=== PATIENT | male | born 1960 | race Caucasian/White ===

== ENCOUNTER 2017-02-16 08:58 | Inpatient (IN) ==
[2017-02-09 14:41] LABS: Basophils # (Auto) 0 K/mcL (0.0-0.3); Basophils % (Auto) 0.7 % (0.0-2.0); Eosinophils # (Auto) 0.1 K/mcL (0.0-0.7); Eosinophils % (Auto) 2.5 % (0.0-7.0); Granulocytes % (Auto) 63.7 % (38.0-78.0); Lymphocytes # (Auto) 1.4 K/mcL (1.5-4.8); Mean Cell Volume 84.9 fL (80.0-100.0); Mean Corpuscular HGB Conc 33.4 g/dL (31.0-36.0); Mean Corpuscular Hemoglobin 28.4 pg (26.0-34.0); Monocytes # (Auto) 0.5 K/mcL (0.1-0.9); Monocytes % (Auto) 9.1 % (1.0-9.0); Platelet Count 234 K/mcL (140-440); RBC 4.62 M/mcL (4.50-5.90); Red Cell Distribution Width 13.2 % (11.5-14.5)
[2017-02-09 14:59] LABS: Appearance,Urine CLEAR; Bilirubin,Urine NEG (NEG); Color,Urine STRAW; Glucose,Urine (UA) NEGATIVE (NEG); Leukocyte Esterase,Urine NEG /uL (NEG); Nitrate,Urine NEG (NEG); Protein,Urine NEG (NEG); Urine Blood NEG mg/dL (<0.03); Urobilinogen,Urine NEG (NEG)
[2017-02-09 15:13] LABS: Blood Urea Nitrogen 21 mg/dl (6-20)
[~2017-02-16 08:58] MED LIST: CELECOXIB 200 MG CAPSULE PO SCH; ceFAZolin 1 GM VIAL IV SCH; oxyCODONE 10 MG TAB.ER.12H PO SCH
[2017-02-16] MEDS: PREGABALIN 150 MG CAPSULE PO SCH (09:37)
[2017-02-16] MEDS ORDERED: GLYCOPYRROLATE 0.2 MG/ML VIAL IV ONE (13:45)
[2017-02-16] MEDS ORDERED: ONDANSETRON 4 MG/2 ML VIAL IV ONE (13:45)
[2017-02-16] MEDS ORDERED: LIDOCAINE HCL/PF 100 MG/5 ML SYRINGE IV ONE (13:45)
[2017-02-16] MEDS ORDERED: PROPOFOL 200 MG/20 ML VIAL IV ONE (13:45)
[2017-02-16] MEDS ORDERED: MIDAZOLAM 5 MG/5 ML VIAL IV ONE (13:45)
[2017-02-16] MEDS ORDERED: ePHEDrine 50 MG/ML AMPUL IV ONE (13:45)
[2017-02-16] MEDS ORDERED: DEXAMETHASONE 10 MG/ML VIAL IV ONE (13:45)
[2017-02-16] MEDS ORDERED: PROMETHAZINE 25 MG/ML VIAL IV PRN ×2 (14:50→15:29)
[2017-02-16] MEDS ORDERED: MEPERIDINE 25 MG/ML SYRINGE IV PRN (14:50)
[2017-02-16] MEDS ORDERED: diphenhydrAMINE 50 MG/ML VIAL IV PRN (14:50)
[2017-02-16] MEDS ORDERED: FLUMAZENIL 0.1 MG/ML ML IV PRN (14:50)
[2017-02-16] MEDS ORDERED: IPRATROPIUM/ALBUTEROL 3 ML AMPUL.NEB NEB PRN (14:50)
[2017-02-16] MEDS ORDERED: NALOXONE HCL 0.4 MG/ML VIAL IV PRN (14:50)
[2017-02-16] MEDS ORDERED: LACTATED RINGERS 250 ML IV PRN (14:50)
[2017-02-16] MEDS ORDERED: METHOCARBAMOL 1,000 MG/10 ML VIAL IV PRN (14:50)
[2017-02-16] MEDS ORDERED: fentaNYL 100 MCG/2 ML VIAL IV PRN (14:50)
[2017-02-16] MEDS ORDERED: HYDROmorphone 2 MG/ML SYRINGE IV PRN ×2 (14:50→15:29)
[2017-02-16] MEDS ORDERED: ONDANSETRON 4 MG/2 ML VIAL IV PRN ×2 (14:50→15:29)
[2017-02-16] MEDS ORDERED: BENZOCAINE/MENTHOL 1 LOZENGE PO PRN ×2 (14:50→15:29)
[2017-02-16] MEDS ORDERED: LACTATED RINGERS 1,000 ML IV SCH (15:00)
[2017-02-16] MEDS ORDERED: TRANEXAMIC ACID 1,000 MG/10 ML VIAL IV SCH (15:29)
[2017-02-16] MEDS ORDERED: METHOCARBAMOL 750 MG TABLET PO PRN (15:29)
[2017-02-16] MEDS ORDERED: ONDANSETRON ODT 4 MG TABLET SL PRN (15:29)
[2017-02-16] MEDS ORDERED: KETOROLAC 30 MG/ML VIAL IV PRN (15:29)
[2017-02-16] MEDS ORDERED: BISACODYL 10 MG SUPP.RECT PR PRN (15:29)
[2017-02-16] MEDS ORDERED: POLYETHYLENE GLYCOL 3350 17 GM PACKET PO PRN (15:29)
[2017-02-16] MEDS ORDERED: FLEETS ADULT ENEMA PR PRN (15:29)
[2017-02-16] MEDS ORDERED: MAGNESIUM HYDROXIDE 30 ML ORAL.SUSP PO PRN (15:29)
--- NOTE | 2017-02-16 15:29 | Brief Operative Note ---
Date of procedure: 02/16/17 Pre-op diagnosis: left hip oa Post-op diagnosis: same Procedure: left total hip arthroplasty Grafts/Implants: Yes Anesthesia: spinal Complications: none Surgeon: Orlin Winkler Branch Operations Specialist: Matt Cobian Estimated blood loss (cc): 150 Specimens Removed/Pathology: none sent Condition: stable Disposition: PACU
--- NOTE | 2017-02-16 16:18 | XRay Report ---
CLINICAL INFORMATION: Postsurgical follow-up TECHNIQUE: Portable AP pelvis and lateral left hip COMPARISON: None. FINDINGS: Status post left total hip arthroplasty. Acetabular and femoral head complements are in anatomic positions. Moderate to severe degenerative disc disease in the right hip. IMPRESSION: Status post left total hip arthroplasty Interpreted and Authenticated by: Orlin Combs 02/16/17
--- NOTE | 2017-02-16 16:42 | Operative Note ---
DATE OF OPERATION: 02/16/2017 PREOPERATIVE DIAGNOSIS: Degenerative joint disease, left hip. POSTOPERATIVE DIAGNOSIS: Degenerative joint disease, left hip. PROCEDURE: Left total hip arthroplasty. SURGEON: Annie Winkler M.D. CREATIVE DEVELOPER SURGEON: Matt Cobian PA-C. ANESTHESIA: Spinal with LMA assist. ESTIMATED BLOOD LOSS: 150 mL. COMPLICATIONS: None noted. SPECIMENS REMOVED: None. DRAINS: None. IMPLANTS: DePuy [place] Hole Eliminator PS; DePuy [place] Gription acetabular shell 54 mm OD; [place] Altrx polyethylene acetabular liner, neutral 36 x 54; DePuy Tri-Lock BPS femoral stem with Gription size 3 standard; DePuy Biolox delta ceramic femoral head +8.5, 36 mm diameter. INDICATIONS: The patient has had a long-standing history of worsening pain in the hip that has failed conservative treatment. Radiographs have confirmed advanced degenerative joint disease. After a long discussion about treatment options, the patient elected to proceed with a hip arthroplasty. The risks and benefits were discussed with the patient in detail including, but not limited to, the risks of anesthesia, problems with the heart or lungs related to anesthesia, infection, compromise or injury to the nerves and blood vessels, deep venous thrombosis, pulmonary embolism, pneumonia, continued pain after surgery, worsening pain or symptoms after surgery, swelling, loss of motion, instability, leg length discrepancy, and need for repeat surgery. DESCRIPTION OF PROCEDURE: The patient was seen in pre-anesthesia waiting room where all questions were answered and the correct side and site were identified and marked. The patient was then brought to the operating room and administered the anesthetic and given preoperative antibiotics. A time-out was then called. The patient was placed in the lateral decubitus position with all prominences well padded using the [place] frame and the extremity was prepped and draped in the usual sterile fashion. Anesthesia; gave the patient 1 gm of tranexamic acid via an intravenous route. A standard posterior approach was made. We dissected through the skin and subcutaneous tissue to the deep fascia. The deep fascia was split in line with the incision and a Charnley retractor was placed. We exposed, tagged, and incised the short external rotators and piriformis tendon and retracted them posteriorly to help protect the sciatic nerve which was palpated throughout the case. We then performed a T-capsulotomy and tagged the capsule edges. Prior to dislocating the hip, we set a length and offset gauge from a Steinmann pin in the iliac wing to a corina on the greater trochanter. The hip was then dislocated and a femoral neck osteotomy was performed to the presurgical templated level off the lesser trochanter. The head was removed and sized. We next turned our attention to the acetabulum. Retractors were placed for optimal visualization. A complete labral excision was performed. The capsule was preserved for later closure. We began reaming using anatomic landmarks with the DePuy [place] acetabular system. We medialized the cup and reamed up to provide good fill and approximately 20 degrees of anteversion and 45 degrees of abduction, we impacted the DePuy [place] cup and placed a cancellous screw in the posterior-superior quadrant. Osteophytes were removed from around the shell. We placed the trial liner and turned our attention to the femur. We placed retractors for visualization, internally rotated the femur, and established intramedullary access. The femoral axis was lateralized with the box osteotome and then reamed up in a standard fashion. We broached using the DePuy [place] stem to a stable platform medial, lateral, and rotationally with the appropriate version. We then performed a calcar reaming off the broach. Trials were then placed and optimized for leg length and stability. We used the leg length and offset guide to confirm our trials. Best stability, length, and offset characteristics were obtained with these sizes. We removed all trials and impacted the polyethylene acetabular liner in a standard fashion after a thorough irrigation. We then impacted the femoral stem to its broached location using a fourth-generation cementing technique and placed the head. Final reduction was performed. Again, good stability, leg length, and offset characteristics were noted. We irrigated with three liters of antibiotic saline. We closed the capsule with #2 FiberWire. We placed a deep drain and closed the fascia with a combination of looped #0 Maxon and #0 Vicryl. We closed the subcutaneous tissue and skin in layers out to amberly in the skin. A sterile pressure dressing and abduction wedge were applied. All needle and sponge counts were correct. The patient was transferred to the recovery room in stable condition. ALEX:[email or web address] Job ID: [id number] Doc ID: [id number] Annie Winkler MD
[2017-02-16] MEDS: LACTATED RINGERS 1,000 ML IV SCH ×2 (17:39→23:00)
[2017-02-16] MEDS ORDERED: amLODIPine 10 MG TABLET PO SCH (18:00)
[2017-02-16] MEDS: HYDROcodone/APAP 10/325MG TABLET PO PRN (19:21)
[2017-02-16] MEDS ORDERED: SENNOSIDES 1 TABLET PO SCH (21:00)
[2017-02-16] MEDS: DOCUSATE SODIUM 100 MG CAPSULE PO SCH (21:42)
[2017-02-16] MEDS: WARFARIN 5 MG TABLET PO SCH (21:53)
[2017-02-16] MEDS: ceFAZolin 1 GM VIAL IV SCH (21:53)
[2017-02-16] MEDS: 0.9 % SODIUM CHLORIDE 10 ML SYRINGE IV SCH (22:01)
[2017-02-17] MEDS: ceFAZolin 1 GM VIAL IV SCH (04:49)
[2017-02-17] MEDS: 0.9 % SODIUM CHLORIDE 10 ML SYRINGE IV SCH ×2 (05:10→13:58)
[2017-02-17] MEDS: HYDROcodone/APAP 10/325MG TABLET PO PRN ×2 (06:54→13:56)
--- NOTE | 2017-02-17 07:34 | Discharge Summary ---
Providers - Providers Patient information: Note initiated : 02/17/17 at 7:32 am Service Date, if different from initiated Date: [] Patient: Aaron Hayes 57 y/o M admitted on 02/16/17 for Left Total Hip Arthroplasty. Chief Complaint: [] Date of admission: 02/16/17 Discharge date: 02/17/17 Attending physician: Orlin Winkler Hospitalization Hospital course: Patient had longstanding history of worsening hip pain that failed conservative treatment. Radiographs showed advanced degenerative joint disease. He elected to proceed with surgery. On 02/16/17 he was taken to the OR where a Total Hip Arthroplasty was performed. He tolerated the procedure well and was taken to PACU in stable condition. He had no pain after surgery and was walking greater than 200 feet that night. He was ready for discharge the next day. He denied calf pain, chest pain, SOB. Vital signs were stable. Labs were WNL. Discharge diagnosis: Left Total Hip Arthroplasty Reason for admission: Left degenerative joint disease Exam - Exam Incision healing: Yes Incision draining: No Incision red: No Incision swollen: No Incision inflamed: No Clean and dry: Yes Weight bearing status: as tolerated Ortho Discharge - NGHIA - Patient Instructions Diet: Regular Diet Activity: activity as tolerated Total Hip Protocol: Follow activity instructions as provided by Physical Therapy. Dressing Care: May shower in 2 days - Follow Up Plan Follow Up Appointments: Orlin Winkler MD [Physician] - 03/03/17 10:00 am Disposition: Home, Self-Care Prognosis: Good Rehab Potential: Good I certify that the patient requires SNF services: No Overall status at discharge: patient is progressing back to baseline - Orders For Discharge Prescriptions: Docusate Sodium [Colace] 100 mg PO BID #30 capsule HYDROcodone/APAP 10/325MG [[place] 10/325Mg] 1 - 2 tab PO Q4HP PRN #60 tablet PRN Reason: Pain Warfarin [Coumadin] 5 mg PO DAILY@1400 #30 tablet Pending Studies Resuscitation Status Full Code Diet Regular Diet Start WedFeb 16 Dinner Acetaminophen/Hydrocodone Bitart ([place] 10/325mg) 0 tab PO Q4HP PRN PRN Reason: Pain Last Admin: 02/17/17 06:54 Dose: 1 tab Admin: 02/16/17 19:21 Dose: 1 tab Amlodipine Besylate (Norvasc) 10 mg PO QDAY@1800 [facility] Last Admin: 02/16/17 17:42 Dose: Not Given Docusate Sodium (Colace) 100 mg PO BID [facility] Last Admin: 02/16/17 21:42 Dose: 100 mg Lactated Ringer's (Lactated Ringers) 1,000 mls @ 125 mls/hr IV .Q8H [facility] Last Admin: 02/16/17 23:00 Dose: 125 mls/hr Admin: 02/16/17 17:39 Dose: Not Given Senna (Senokot) 2 tab PO HS [facility] Last Admin: 02/16/17 21:42 Dose: 2 tab Sodium Chloride (Saline Flush) 10 ml IV Q8 [facility] Last Admin: 02/17/17 05:10 Dose: 10 ml Admin: 02/16/17 22:01 Dose: Not Given Warfarin Sodium (Coumadin) 5 mg PO DAILY@1400 [facility] Last Admin: 02/16/17 21:53 Dose: 5 mg Shift Summary 02/17/17 03:03 Shift Summary by Wally Copeland Pt a&o x4, VSS on RA. Pt up with SBA using FWW. Walked to nurses station. Minimal c/o pain and received 1 [place] x1 thus far. CMS intact. Dressing had to be reinforced last night due to excessive drainage. Ice pack placed when in bed. Pt was BS for >600 and was able to urinate 500ml. Pt since then urinating 250mls on average q2-[address] Foot pumps in place. Iv to left hand. Plans for DC pending. Will update further at bedside. Initialized on 02/17/17 03:03 - END OF NOTE
[2017-02-17] MEDS: DOCUSATE SODIUM 100 MG CAPSULE PO SCH (08:36)
[2017-02-17] MEDS ORDERED: LISINOPRIL 20 MG TABLET PO SCH (09:00)
[2017-02-17] MEDS ORDERED: FLU VACC QS2016-17 36MOS UP/PF 60 MCG/0.5 ML SYRINGE IM ONE (09:00)
[2017-02-17] MEDS ORDERED: HYDROCHLOROTHIAZIDE 25 MG TABLET PO SCH (09:00)
[2017-02-17] MEDS: LACTATED RINGERS 1,000 ML IV SCH (09:54)
[2017-02-17] MEDS: WARFARIN 5 MG TABLET PO SCH (13:58)
== END 2017-02-17 18:40 | disposition home or self-care (01) | DRG 470 ==
LOC: MEDSUR 08:58
PROVIDERS: ADMIT Orthopaedic Surgery Sports Medicine; ATTEND Orthopaedic Surgery Sports Medicine

== ENCOUNTER 2017-08-17 04:53 | Inpatient (IN) ==
[2017-08-11 17:39] LABS: Appearance,Urine CLEAR; Bilirubin,Urine NEG (NEG); Color,Urine STRAW; Glucose,Urine (UA) NEGATIVE (NEG); Leukocyte Esterase,Urine NEG /uL (NEG); Nitrate,Urine NEG (NEG); Protein,Urine NEG (NEG); Specific Gravity,Urine 1.006 (1.000-1.035); Urine Blood NEG mg/dL (<0.03); Urobilinogen,Urine NEG (NEG)
[2017-08-11 17:58] LABS: Basophils # (Auto) 0.1 K/mcL (0.0-0.3); Basophils % (Auto) 1.1 % (0.0-2.0); Eosinophils # (Auto) 0.2 K/mcL (0.0-0.7); Eosinophils % (Auto) 3.2 % (0.0-7.0); Granulocytes % (Auto) 55.9 % (38.0-78.0); Lymphocytes # (Auto) 1.6 K/mcL (1.5-4.8); Lymphocytes % (Auto) 29.1 % (15.5-49.0); Mean Cell Volume 83.9 fL (80.0-100.0); Mean Corpuscular HGB Conc 34.4 g/dL (31.0-36.0); Mean Corpuscular Hemoglobin 28.8 pg (26.0-34.0); Monocytes # (Auto) 0.6 K/mcL (0.1-0.9); Monocytes % (Auto) 10.7 % (1.0-12.0); Platelet Count 238 K/mcL (140-440); RBC 4.84 M/mcL (4.50-5.90)
[2017-08-11 18:05] LABS: Blood Urea Nitrogen 23 mg/dl (6-20)
[2017-08-17] MEDS ORDERED: oxyCODONE 10 MG TAB.ER.12H PO SCH (05:00)
[2017-08-17] MEDS ORDERED: ceFAZolin 1 GM VIAL IV SCH (05:00)
[2017-08-17] MEDS ORDERED: PREGABALIN 75 MG CAPSULE PO SCH (05:00)
[2017-08-17] MEDS ORDERED: CELECOXIB 200 MG CAPSULE PO SCH (05:00)
[2017-08-17] MEDS ORDERED: ONDANSETRON 4 MG/2 ML VIAL IV ONE (07:30)
[2017-08-17] MEDS ORDERED: MIDAZOLAM 5 MG/5 ML VIAL IV ONE (07:30)
[2017-08-17] MEDS ORDERED: TRANEXAMIC ACID 1,000 MG/10 ML VIAL IV ONE ×2 (07:30→09:07)
[2017-08-17] MEDS ORDERED: LIDOCAINE HCL/PF 100 MG/5 ML SYRINGE IV ONE (07:30)
[2017-08-17] MEDS ORDERED: PROPOFOL 200 MG/20 ML VIAL IV ONE (07:30)
[2017-08-17] MEDS ORDERED: PHENYLEPHRINE 10 MG/ML VIAL IV ONE (07:30)
[2017-08-17] MEDS ORDERED: KETAMINE 100 MG/ML ML IV ONE (07:30)
[2017-08-17] MEDS ORDERED: GLYCOPYRROLATE 0.2 MG/ML VIAL IV ONE (07:30)
[2017-08-17] MEDS ORDERED: ePHEDrine 50 MG/ML AMPUL IV ONE (07:30)
[2017-08-17] MEDS ORDERED: GENTAMICIN SULFATE 800 MG/20 ML VIAL IR ONE (08:31)
[2017-08-17] MEDS ORDERED: ONDANSETRON 4 MG/2 ML VIAL IV PRN ×2 (08:49→09:07)
[2017-08-17] MEDS ORDERED: METOPROLOL TARTRATE 5 MG/5 ML VIAL IV PRN (08:49)
[2017-08-17] MEDS ORDERED: METHOCARBAMOL 1,000 MG/10 ML VIAL IV PRN (08:49)
[2017-08-17] MEDS ORDERED: MEPERIDINE 25 MG/ML SYRINGE IV PRN (08:49)
[2017-08-17] MEDS ORDERED: ePHEDrine 50 MG/ML AMPUL IV PRN (08:49)
[2017-08-17] MEDS ORDERED: fentaNYL 100 MCG/2 ML VIAL IV PRN (08:49)
[2017-08-17] MEDS ORDERED: HYDROmorphone 2 MG/ML SYRINGE IV PRN (08:49)
[2017-08-17] MEDS ORDERED: BENZOCAINE/MENTHOL 1 LOZENGE PO PRN ×2 (08:49→09:07)
[2017-08-17] MEDS ORDERED: IPRATROPIUM/ALBUTEROL 3 ML AMPUL.NEB NEB PRN (08:49)
[2017-08-17] MEDS ORDERED: ACETAMINOPHEN 1,000 MG/100 ML BOTTLE IV SCH (09:00)
[2017-08-17] MEDS ORDERED: LACTATED RINGERS 1,000 ML IV SCH (09:00)
[2017-08-17] MEDS ORDERED: FLEETS ADULT ENEMA PR PRN (09:07)
[2017-08-17] MEDS ORDERED: BISACODYL 10 MG SUPP.RECT PR PRN (09:07)
[2017-08-17] MEDS ORDERED: MAGNESIUM HYDROXIDE 30 ML ORAL.SUSP PO PRN (09:07)
[2017-08-17] MEDS ORDERED: ONDANSETRON ODT 4 MG TABLET SL PRN (09:07)
[2017-08-17] MEDS ORDERED: METHOCARBAMOL 750 MG TABLET PO PRN (09:07)
[2017-08-17] MEDS ORDERED: POLYETHYLENE GLYCOL 3350 17 GM PACKET PO PRN (09:07)
[2017-08-17] MEDS ORDERED: KETOROLAC 30 MG/ML VIAL IV PRN (09:07)
--- NOTE | 2017-08-17 09:37 | Operative Note ---
DATE OF OPERATION: 08/17/2017 PREOPERATIVE DIAGNOSIS: Degenerative joint disease, right hip. POSTOPERATIVE DIGNOSIS: Degenerative joint disease, right hip. PROCEDURE: Right total hip arthroplasty. SURGEON: Annie Winkler M.D. CARDIOPULMONARY SPECIALIST SURGEON: Ifeanyi Leach PA-C and Radha Garay PA-C ANESTHESIA: Spinal with LMA assist. ESTIMATED BLOOD LOSS: 150 mL COMPLICATIONS: None noted. SPECIMENS REMOVED: None. DRAINS: None. IMPLANTS: DePuy [place] hole eliminator PS, DePuy [place] Gription acetabular shell 54 mm, DePuy [place] Altrx polyethylene acetabular liner neutral 36 x 54, DePuy Biolox Delta ceramic femoral head +8.5 36 mm, DePuy Tri-Lock BPS femoral stem with Gription size 3 standard. INDICATIONS: The patient has had a longstanding history of worsening pain in the hip that has failed conservative treatment. Radiographs have confirmed advanced degenerative joint disease. After a long discussion about treatment options, the patient elected to proceed with a hip arthroplasty. The risks and benefits were discussed with the patient in detail including, but not limited to, the risks of anesthesia, problems with the heart or lungs related to anesthesia, infection, compromise or injury to the nerves and blood vessels, deep venous thrombosis, pulmonary embolism, pneumonia, continued pain after surgery, worsening pain or symptoms after surgery, swelling, loss of motion, instability, leg length discrepancy, and need for repeat surgery. DESCRIPTION OF PROCEDURE: The patient was seen in pre-anesthesia waiting room where all questions were answered and the correct side and site were identified and marked. The patient was then brought to the operating room and administered the anesthetic and given pre-operative antibiotics. A time-out was then called. The patient was placed in the lateral decubitus position with all prominences well padded using the [place] frame and the extremity was prepped and draped in the usual sterile fashion. Anesthesia gave the patient 1 gm of tranexamic acid via an intravenous route. A standard posterior approach was made. We dissected through the skin and subcutaneous tissue to the deep fascia. The deep fascia was split in line with the incision and a Charnley retractor was placed. We exposed, tagged, and incised the short external rotators and piriformis tendon and retracted them posteriorly to help protect the sciatic nerve which was palpated throughout the case. We then performed a T-capsulotomy and tagged the capsule edges. Prior to dislocating the hip, we set a length and offset gauge from a Steinmann pin in the iliac wing to a corina on the greater trochanter. The hip was then dislocated and a femoral neck osteotomy was performed to the pre-surgical templated level off the lesser trochanter. The head was removed and sized. We next turned our attention to the acetabulum. Retractors were placed for optimal visualization. A complete labral excision was performed. The capsule was preserved for later closure. We began reaming using anatomic landmarks with the DePuy [place] acetabular system. We medialized the cup and reamed up to provide good fill and coverage of the trial. When the trial was stable and appropriately positioned with approximately 20 degrees of anteversion and 45 degrees of abduction, we impacted the DePuy [place] cup and placed a cancellous screw in the posterior-superior quadrant. Osteophytes were removed from around the shell. We placed the trial liner and turned our attention to the femur. We placed retractors for visualization, internally rotated the femur, and established intramedullary access. We broached using the DePuy Tri-Lock stem to a stable platform medial, lateral, and rotationally with the appropriate version. We then performed a calcar reaming off the broach. Trials were then placed and optimized for leg length and stability. We used the leg length and offset guide to confirm our trials. Best stability, length, and offset characteristics were obtained with these sizes. We removed all trials and impacted the polyethylene acetabular liner in a standard fashion after a thorough irrigation. We then impacted the femoral stem to its broached location and placed the head. Final reduction was performed. Again, good stability, leg length, and offset characteristics were noted. We irrigated with three liters of antibiotic saline. We closed the capsule with #2 FiberWire. We placed a deep drain and closed the fascia with a combination of looped #0 Maxon and #0 Vicryl. We closed the subcutaneous tissue and skin in layers out to amberly in the skin. A sterile pressure dressing and abduction wedge was applied. All needle and sponge counts were correct. The patient was transferred to the recovery room in stable condition. ALEX:[email or web address] Job ID: [id number] Doc ID: [id number] Annie Winkler MD
[2017-08-17] MEDS: 0.9 % SODIUM CHLORIDE 1,000 ML IV SCH ×2 (10:35→18:48)
--- NOTE | 2017-08-17 11:02 | XRay Report ---
CLINICAL INFORMATION: Postop total hip prostheses COMPARISON: None. FINDINGS: Right total hip prostheses is anatomically aligned.. Older left total hip prosthesis also remains anatomically aligned without evidence of loosening or infection. There is no osseous abnormality. Minimal soft tissue swelling at the surgical site seen - as expected IMPRESSION: Negative Interpreted and Authenticated by: Orlin Kirby 08/17/17
[2017-08-17] MEDS: HYDROmorphone 2 MG/ML SYRINGE IV PRN (11:25)
[2017-08-17] MEDS: 0.9 % SODIUM CHLORIDE 10 ML SYRINGE IV SCH ×2 (13:42→21:02)
[2017-08-17] MEDS: ceFAZolin 1 GM VIAL IV SCH ×2 (13:59→21:54)
[2017-08-17] MEDS: HYDROcodone/APAP 10/325MG TABLET PO PRN ×2 (13:59→19:17)
[2017-08-17] MEDS ORDERED: WARFARIN 5 MG TABLET PO SCH (14:00)
--- NOTE | 2017-08-17 17:36 | Brief Operative Note ---
Date of procedure: 08/17/17 Pre-op diagnosis: right hip oa Post-op diagnosis: same Procedure: right total hip arthroplasty Grafts/Implants: Yes Anesthesia: spinal Complications: none Surgeon: Orlin Winkler Telephone Maintainer: Ifeanyi Leach Estimated blood loss (cc): 150 Specimens Removed/Pathology: none sent Condition: stable Disposition: PACU
[2017-08-17] MEDS ORDERED: SENNOSIDES 1 TABLET PO SCH (21:00)
[2017-08-17] MEDS: DOCUSATE SODIUM 100 MG CAPSULE PO SCH (21:04)
[2017-08-18] MEDS: HYDROcodone/APAP 10/325MG TABLET PO PRN ×4 (00:27→13:38)
[2017-08-18] MEDS: 0.9 % SODIUM CHLORIDE 1,000 ML IV SCH ×2 (00:52→10:43)
[2017-08-18] MEDS: HYDROmorphone 2 MG/ML SYRINGE IV PRN (02:05)
[2017-08-18] MEDS: 0.9 % SODIUM CHLORIDE 10 ML SYRINGE IV SCH (04:57)
--- NOTE | 2017-08-18 07:40 | Discharge Summary ---
Providers - Providers Patient information: Note initiated : 08/18/17 at 7:37 am Service Date, if different from initiated Date: [] Patient: Aaron Hayes 57 y/o M admitted on 08/17/17 for Right Total Hip Arthroplasty. Chief Complaint: [s/p right NGHIA] POD #1 s/p right NGHIA. Patient is doing very well this morning. He has minimal pain and has ambulated a few times without difficulty. He denies numbness or tingling in the extremities as well as no CP or SOB. He states that he is ready to go home as of today. All questions were answered this morning. Discharge date: 08/18/17 Hospitalization Hospital course: Patient underwent a right NGHIA yesterday in the OR and was admitted overnight for pain control and observation. He is slowly progressing back to baseline and is ready to be discharged home as of today. There have been no events in hospital. He will follow up in clinic in 2 weeks time. Discharge diagnosis: right hip osteoarthritis Exam - Exam Incision healing: Yes Incision draining: No Incision red: No Incision swollen: No Clean and dry: Yes Weight bearing status: as tolerated (with assistive device) Ortho Discharge - NGHIA - Patient Instructions Diet: Regular Diet Activity: ambulate with assistive device, weight bearing as tolerated Total Hip Protocol: Follow activity instructions as provided by Physical Therapy. Dressing Care: May shower in 2 days, Other (leave dermabond in place- will be removed at 2 week post op in office) - Follow Up Plan Follow Up Appointments: Orlin Winkler MD [Physician] - 09/01/17 1:40 pm Disposition: Home, Self-Care Prognosis: Fair Rehab Potential: Fair Overall status at discharge: patient is progressing back to baseline - Orders For Discharge Prescriptions: HYDROcodone/APAP 10/325MG [[place] 10/325Mg] 1 - 2 tab PO Q4HP PRN #60 tablet PRN Reason: Pain Warfarin [Coumadin] 5 mg PO DAILY@1400 #30 tablet Additional Discharge Orders: Physical Therapy at Discharge - NGHIA Location: Determined By Patient Pending Studies Resuscitation Status Full Code Diet Regular Diet Start WedAug 17 Dinner Hydrocodone Bitart/Acetaminophen ([place] 10/325mg) 0 tab PO Q4HP PRN PRN Reason: Pain Last Admin: 08/18/17 06:14 Dose: 1 tab Admin: 08/18/17 00:27 Dose: 1 tab Admin: 08/17/17 19:17 Dose: 1 tab Admin: 08/17/17 13:59 Dose: 1 tab Docusate Sodium (Colace) 100 mg PO BID [facility] Last Admin: 08/17/17 21:04 Dose: 100 mg Hydromorphone HCl (Dilaudid) 0 mg IV Q2HP PRN PRN Reason: Pain Last Admin: 08/18/17 02:05 Dose: 0.5 mg Sodium Chloride (Sodium Chloride 0.9%) 1,000 mls @ 125 mls/hr IV .Q8H [facility] Last Admin: 08/18/17 00:52 Dose: Not Given Admin: 08/17/17 18:48 Dose: 125 mls/hr Infusion: 08/17/17 18:35 Dose: 125 mls/hr Admin: 08/17/17 10:35 Dose: 125 mls/hr Senna (Senokot) 2 tab PO HS [facility] Last Admin: 08/17/17 21:04 Dose: 2 tab Sodium Chloride (Saline Flush) 10 ml IV Q8 [facility] Last Admin: 08/18/17 04:57 Dose: Not Given Admin: 08/17/17 21:02 Dose: Not Given Admin: 08/17/17 13:42 Dose: Not Given Warfarin Sodium (Coumadin Per Pharmacy) 1 order PO DAILY@1400 [facility] Last Admin: 08/17/17 14:00 Dose: Not Given Warfarin Sodium (Coumadin) 5 mg PO DAILY@1400 [facility] Last Admin: 08/17/17 14:00 Dose: 5 mg Shift Summary 08/18/17 03:23 Shift Summary by Aaron Sanches PT is A&O X4, uses the urinal to void, up with 1 and FWW, walked to the nurses station and back. Complained of pain and medicated with [place] 10 X 2 and 0.5mg of IV Dilaudid. IV to left hand is now saline locked, PT is tolerating PO fluids good. Dressing to right hip is CDI. Verbal report to follow. Initialized on 08/18/17 03:23 - END OF NOTE Objective Vital Signs Temp Pulse Pulse Resp BP Pulse Ox 08/18/17 07:41 73 95 08/18/17 04:00 98.3 F 76 16 145/80 91 08/18/17 00:00 97.8 F 70 16 130/70 92 08/17/17 20:00 97.4 F 56 L 16 120/72 99 08/17/17 19:57 96 08/17/17 13:03 134/82 97 08/17/17 12:48 129/79 97 08/17/17 12:33 125/81 98 08/17/17 12:04 49 L 125/81 99 08/17/17 11:49 136/67 97 08/17/17 11:33 120/81 08/17/17 11:18 126/70 96 08/17/17 11:03 130/84 99 08/17/17 10:48 132/84 96 08/17/17 10:34 118/86 93 08/17/17 10:18 108/60 95 08/17/17 10:05 97.6 F 62 12 123/69 96 08/17/17 10:00 59 L 15 129/70 98 08/17/17 09:55 49 L 12 136/75 95 08/17/17 09:50 50 L 12 128/78 94 08/17/17 09:45 51 L 13 124/62 96 08/17/17 09:40 54 L 15 119/59 95 08/17/17 09:35 97.2 F 65 17 122/60 96 - Intake & Output Intake & Output: Intake & Output 08/17/17 08/18/17 08/18/17 21:59 05:59 13:59 Intake Total 1640 / 1640 700 / 700 Output Total 850 / 850 350 / 350 200 / 200 Balance 790 / 790 350 / 350 -200 / -200 Weight 260 lb 8 oz Intake: IV 1000 / 1000 Sodium Chloride 0.9% 1, 1000 / 1000 000 ml @ 125 mls/hr IV . Q8H [facility] Rx#:[id number] Oral 640 / 640 700 / 700 Output: Void Amount 850 / 850 350 / 350 200 / 200 Other: Meal Lunch Percent of Meal Consumed 100% Feeding Ability Assist with Tray Set Up - Physical Examination General: Appears Well, No Apparent Distress - Labs and Meds Coagulation 08/18/17 Range/Units 04:40 PT 13.7 (11.9-14.5) sec CBC 08/18/17 Range/Units 04:40 Hgb 11.6 L (13.5-16.5) g/dL Hct 34.4 L (41.0-55.0) % Current Medications Generic Name Dose Route Start Last Admin Trade Name Freq PRN Reason Stop Dose Admin Hydrocodone Bitart/Acetaminophen 0 tab 08/17/17 09:07 08/18/17 06:14 [place] 10/325mg PO 1 tab Q4HP PRN Administration Pain Amlodipine Besylate 10 mg 08/18/17 09:00 Norvasc PO QDAY [facility] Aspirin 81 mg 08/18/17 09:00 Aspirin PO DAILY [facility] Bisacodyl 10 mg 08/17/17 09:07 Dulcolax HI Q2-3DAYS PRN Constipation Docusate Sodium 100 mg 08/17/17 21:00 08/17/17 21:04 Colace PO 100 mg BID [facility] Administration Hydrochlorothiazide 25 mg 08/18/17 09:00 Oretic PO QDAY [facility] Hydromorphone HCl 0 mg 08/17/17 09:07 08/18/17 02:05 Dilaudid IV 0.5 mg Q2HP PRN Administration Pain Sodium Chloride 1,000 mls @ 125 mls/hr 08/17/17 09:15 08/18/17 00:52 Sodium Chloride 0.9% IV Not Given .Q8H [facility] Ketorolac Tromethamine 30 mg 08/17/17 09:07 Toradol IV 08/19/17 09:09 Q6HP PRN Pain Lisinopril 20 mg 08/18/17 09:00 Zestril PO QDAY [facility] Magnesium Hydroxide 30 ml 08/17/17 09:07 Milk Of Magnesia PO BIDP PRN Constipation Methocarbamol 750 mg 08/17/17 09:07 Robaxin PO Q6HP PRN Muscle Spasm Ondansetron HCl 4 mg 08/17/17 09:07 Zofran IV Q4HP PRN Nausea And Vomiting Ondansetron HCl 4 mg 08/17/17 09:07 Zofran Odt SL Q4HP PRN Nausea And Vomiting Polyethylene Glycol 17 gm 08/17/17 09:07 Miralax PO DAILYP PRN Constipation Senna 2 tab 08/17/17 21:00 08/17/17 21:04 Senokot PO 2 tab HS [facility] Administration Sodium Biphosphate/Sodium Phosphate 1 dose 08/17/17 09:07 Fleets Adult HI Q3-4DAYS PRN Constipation Sodium Chloride 10 ml 08/17/17 14:00 08/18/17 04:57 Saline Flush IV Not Given Q8 [facility] Throat Lozenges 1 lozenge 08/17/17 09:07 Cepacol PO PRN PRN Sore Throat Warfarin Sodium 1 order 08/17/17 14:00 08/17/17 14:00 Coumadin Per Pharmacy PO Not Given DAILY@1400 [facility] Warfarin Sodium 5 mg 08/17/17 14:00 08/17/17 14:00 Coumadin PO 5 mg DAILY@1400 [facility] Administration Intake and Output 08/17/17 08/18/17 08/18/17 21:59 05:59 13:59 Intake Total 1640 / 1640 700 / 700 Output Total 850 / 850 350 / 350 200 / 200 Balance 790 / 790 350 / 350 -200 / -200 Intake: IV 1000 / 1000 Sodium Chloride 0.9% 1, 1000 / 1000 000 ml @ 125 mls/hr IV . Q8H [facility] Rx#:[id number] Oral 640 / 640 700 / 700 Output: Void Amount 850 / 850 350 / 350 200 / 200 Other: Meal Lunch Percent of Meal Consumed 100% Feeding Ability Assist with Tray Set Up Weight 260 lb 8 oz
[2017-08-18] MEDS ORDERED: HYDROCHLOROTHIAZIDE 25 MG TABLET PO SCH (09:00)
[2017-08-18] MEDS ORDERED: LISINOPRIL 10 MG TABLET PO SCH (09:00)
[2017-08-18] MEDS ORDERED: ASPIRIN 81 MG TAB.CHEW PO SCH (09:00)
[2017-08-18] MEDS ORDERED: amLODIPine 10 MG TABLET PO SCH (09:00)
[2017-08-18] MEDS: DOCUSATE SODIUM 100 MG CAPSULE PO SCH (10:22)
[2017-08-18] MEDS ORDERED: FLU VACC QS2017-18 36MOS UP/PF 60 MCG/0.5 ML SYRINGE IM ONE (12:30)
== END 2017-08-18 14:20 | disposition home or self-care (01) | DRG 470 ==
LOC: MEDSUR 04:53
PROVIDERS: ADMIT Orthopaedic Surgery Sports Medicine; ATTEND Orthopaedic Surgery Sports Medicine